=== PATIENT | male | born 1945 | race Caucasian/White ===

== ENCOUNTER 2019-05-01 15:41 | Emergency (ER) | payer MEDICARE ==
[2019-05-01 16:50] LABS: #Basophils 0.1 thou/uL (0.0-0.2); #Eosinphils 0.3 thou/uL (0.0-0.7); #Lymphocytes 1.8 thou/uL (1.20-3.40); #Monocytes 1.2 thou/uL (0.11-0.59); #Neutrophils 9.7 thou/uL (1.40-6.50); %Basophils 0.6 % (0.0-1.0); %Eosinophils 2.2 % (0.0-10.0); %Lymphocytes 13.6 % (21.0-51.0); %Neutrophils 74.6 % (42.0-75.0); Hemoglobin 15.6 g/dL (14.0-18.0); Mean Corpuscular HGB CONC 33.4 g/dL (32.0-36.0); Mean Corpuscular Hemoglobin 30.6 pg (27.0-31.0); Mean Corpuscular Volume 91.6 fL (78.0-98.0); Mean Platelet Volume 9.9 fL (7.4-10.4); Platelet Count 209 thou/uL (130-400); RBC Distribution Width 14.2 % (11.5-14.5)
[2019-05-01] MEDS ORDERED: Ondansetron PF 4 MG/2 ML Vial ONE (17:04)
[2019-05-01] MEDS ORDERED: Clindamycin/D5W 900 mg/50 ml Premix Bag ONE (17:04)
[2019-05-01] MEDS ORDERED: Morphine 4 MG/ML VIAL ONE (17:04)
[2019-05-01] MEDS ORDERED: Cefepime 2 GM VIAL ONE (17:04)
--- NOTE | 2019-05-01 17:23 | ULT ---
LEFT LOWER EXTREMITY ARTERIAL ULTRASOUND LEFT LOWER EXTREMITY VENOUS ULTRASOUND: HISTORY: Erythema. Swelling. TECHNIQUE: Grayscale, color flow, and doppler imaging with spectral wave analysis performed of the le ft lower extreme venous and arterial system FINDINGS: Left lower extremity venous ultrasound: There is compressibility, presence of flow and augmentation in the common femoral vein, femoral vein and popliteal vein. There is flow in the greater saphenous vein, profunda femoral vein and posterior tibial vein. Left lower extremity arterial ultrasound: Triphasic flow in the common femoral artery and the profunda femoral artery. Monophasic flow in the p roximal superficial femoral artery. Biphasic flow in the mid and distal superficial femoral artery. Monophasic flow in the popliteal artery and intervertebral artery. Biphasic flow in the posterior tib ial artery. Monophasic flow in the dorsalis pedis artery. Velocities: Centimeters per second Common femoral artery: 76.1 Profunda femoral artery: 35.1 SFA proximal: 73.0 SFA mid: 90.6 SFA distal: 78.7 Popliteal: 46.8 Anterior tibial: 12.1 Posterior tibial: 42.7 Dorsalis pedis: 23.6 Evaluation of the left lower extremity arterial system is limited by body habitus IMPRESSION: 1. No evidence of thrombus in the left lower extremity deep venous system 2. Evidence of monophasic flow in the left lower extremity arterial system suggesting significant ath erosclerotic disease. Transcribed Date/Time: 05/01/2019 6:02 PM
--- NOTE | 2019-05-01 17:24 | ULT ---
Please refer to lower extremity venous ultrasound report for details with regards to left lower extre mity arterial ultrasound. Transcribed Date/Time: 05/01/2019 6:03 PM
[2019-05-01 17:41] LABS: Albumin 3.5 g/dL (3.4-4.8)
[2019-05-01 17:42] LABS: Chloride 100 mmol/L (98-107); Potassium 4.3 mmol/L (3.5-5.1); Sodium 131 mmol/L (136-145)
[2019-05-01 17:43] LABS: Calcium 9.1 mg/dL (7.8-10.44); Glucose 168 mg/dL (83-110)
[2019-05-01 17:44] LABS: Globulin 3.7 g/dL (2.4-3.5); Protein, Total 7.2 g/dL (5.8-8.1)
[2019-05-01 17:45] LABS: Anion Gap 15 mmol/L (10-20); Bilirubin, Total 0.5 mg/dL (0.2-1.2); Carbon Dioxide 20 mmol/L (23-31)
[2019-05-01 17:46] LABS: Alkaline Phosphatase 108 U/L (40-110)
[2019-05-01 17:47] LABS: Calc. Creatinine Clearance 0 mL/min (70-130); Estimated GFR-MDRD 18
[2019-05-01 17:48] LABS: BUN (Urea Nitrogen) 50 mg/dL (8.4-25.7)
[2019-05-01 17:49] LABS: ALT (SGPT) 81 U/L (8-55); AST (SGOT) 103 U/L (5-34)
[2019-05-01 21:22] LABS: Lactic Acid 1.6 mmol/L (0.5-2.2)
== END 2019-05-01 23:07 ==
LOC: ERS 15:41
DX: L03.116 Cellulitis of left lower limb (principal); E78.5 Hyperlipidemia, unspecified; F32.9 Major depressive disorder, single episode, unspecified; E11.9 Type 2 diabetes mellitus without complications; I10 Essential (primary) hypertension; Z79.899 Other long term (current) drug therapy; Z79.84 Long term (current) use of oral hypoglycemic drugs
CPT/HCPCS: 36415; 36416; 80053; 83605; 85025; 87040; 93923; 96365; 96367; J0692; J2270; J2405; J3370; J3490